=== PATIENT | female | born 1990 | race Caucasian/White ===

== ENCOUNTER 2019-01-06 02:15 | Outpatient (CLI) | payer OTHER ==
[2019-01-06] MEDS ORDERED: PRENATAL TABLE1 EAC1 PO (07:11)
[2019-01-06] MEDS ORDERED: ASPIR 8181 MG PO (07:12)
== END 2019-01-06 11:12 | disposition home or self-care (01) ==
LOC: OBS/DEL 02:15
DX: O47.1 False labor at or after 37 completed weeks of gestation (principal)

== ENCOUNTER 2019-01-06 13:58 | Inpatient (IN) | payer OTHER ==
[~2019-01-06] VITALS: Ht 157.5 cm; Wt 89.4 kg
[~2019-01-06 13:58] MED LIST: ASPIR 8181 MG PO; PRENATAL TABLE1 EAC1 PO
== END 2019-01-08 13:33 | disposition home or self-care (01) | DRG 807 ==
LOC: OB/GYN 13:58 → LDR 13:58 → OB/GYN 18:32
PROVIDERS: ADMIT Specialist
PROC: 10E0XZZ Delivery of Products of Conception, External Approach (ICD-10-PCS; principal; 2019-01-06)
PROC: 0KQM0ZZ Repair Perineum Muscle, Open Approach (ICD-10-PCS; 2019-01-06)
PROC: 3E033VJ Introduction of Other Hormone into Peripheral Vein, Percutaneous Approach (ICD-10-PCS; 2019-01-06)
PROC: 4A1HXCZ Monitoring of Products of Conception, Cardiac Rate, External Approach (ICD-10-PCS; 2019-01-06)
DX: O70.1 Second degree perineal laceration during delivery (principal); Z37.0 Single live birth; Z3A.39 39 weeks gestation of pregnancy